=== PATIENT | male | born 2005 | race Caucasian/White ===

== ENCOUNTER 2024-01-31 14:02 | Emergency (ER) | payer OTHER ==
[~2024-01-31] VITALS: Ht 185.4 cm; Wt 134.1 kg
[~2024-01-31 14:02] MED LIST: ADDE10 PO
[2024-01-31 14:13] VITALS: BP 135/78; TEMP 99.9
[2024-01-31] MEDS ORDERED: GUAIF600 PO (14:16)
[2024-01-31 14:33] LABS: COVID AG,FIA SOURCE NASAL SWAB
[2024-01-31 14:55] LABS: SARS-COV2 (COVID) ANTIGEN,FIA Negative (Negative)
[2024-01-31 14:59] LABS: INFLUENZA TYPE A NEGATIVE FOR TYPE A (NEGATIVE); INFLUENZA TYPE B NEGATIVE FOR TYPE B (NEGATIVE)
[2024-01-31] MEDS: ACETAMINOPHEN 500 MG TABLET PO ONE (15:33)
[2024-01-31 15:35] VITALS: PULSE 98; RESP 18
[2024-01-31] MEDS: ALBUTEROL SULFATE HFA 90 MCG/PUFF 8 GM INHALER IH ONE (16:24)
== END 2024-01-31 16:26 | disposition home or self-care (01) ==
LOC: EMS 14:44
DX: J40 Bronchitis, not specified as acute or chronic (principal); F17.210 Nicotine dependence, cigarettes, uncomplicated; Z98.890 Other specified postprocedural states; Z91.040 Latex allergy status; Z20.822 Contact with and (suspected) exposure to COVID-19
CPT/HCPCS: 99284; 71045; 99406; 87426; 87804; 94640; J3535; 99283

== ENCOUNTER 2024-02-24 11:26 | Emergency (ER) | payer OTHER ==
[~2024-02-24] VITALS: Ht 175.3 cm; Wt 81.8 kg
[~2024-02-24 11:26] MED LIST changes: -ADDE10 PO; +GUAIF600 PO
[2024-02-24 11:40] VITALS: TEMP 98.1
[2024-02-24 14:00] VITALS: BP 125/79; PULSE 75; RESP 14
== END 2024-02-24 14:15 | disposition home or self-care (01) ==
LOC: EMS 11:26
DX: S60.221A Contusion of right hand, initial encounter (principal); F17.210 Nicotine dependence, cigarettes, uncomplicated; W22.09XA Striking against other stationary object, initial encounter; Y93.71 Activity, boxing; Y92.89 Other specified places as the place of occurrence of the external cause; Y99.8 Other external cause status
CPT/HCPCS: 99283

== ENCOUNTER 2024-07-07 17:50 | Emergency (ER) | payer OTHER ==
[~2024-07-07] VITALS: Ht 185.4 cm; Wt 131.8 kg
[2024-07-07 17:55] VITALS: BP 144/74; PULSE 96; RESP 16; TEMP 98.6; O2SAT 98
[2024-07-07] MEDS: IBUPROFEN 600 MG TABLET PO ONE (19:26)
[2024-07-07] MEDS: ACETAMINOPHEN 500 MG TABLET PO ONE (19:26)
== END 2024-07-07 20:19 | disposition home or self-care (01) ==
LOC: EMS 17:50
DX: S93.401A Sprain of unspecified ligament of right ankle, initial encounter (principal); F17.210 Nicotine dependence, cigarettes, uncomplicated; Z98.890 Other specified postprocedural states; Z91.030 Bee allergy status; W10.8XXA Fall (on) (from) other stairs and steps, initial encounter; Y93.01 Activity, walking, marching and hiking; Y92.89 Other specified places as the place of occurrence of the external cause; Y99.8 Other external cause status
CPT/HCPCS: 29515; 99283